=== PATIENT | male | born 2000 | race Caucasian/White ===

== ENCOUNTER 2022-03-13 12:16 | Emergency (ER) | payer OTHER ==
[2022-03-13] MEDS ORDERED: Lidocaine 1% 10 ML MDV INJECT ONE (13:26)
[2022-03-13] MEDS ORDERED: Diphtheria,Pertussis(Acell),Tetanus Vaccine 0.5 ML Syringe IM ONE (14:05)
== END 2022-03-13 14:46 | disposition home or self-care (01) ==
LOC: JD.ED 12:16
DX: S61.412A Laceration without foreign body of left hand, initial encounter (principal); Z88.0 Allergy status to penicillin; Z23 Encounter for immunization; W26.8XXA Contact with other sharp object(s), not elsewhere classified, initial encounter
CPT/HCPCS: 12001; 90471; 90715; 99282; 99282-25